=== PATIENT | male | born 1965 | race American Indian/Alaskan Native ===

== ENCOUNTER 2017-03-26 20:25 | Emergency (ER) | payer OTHER ==
[2017-03-26] MEDS ORDERED: TYLENOL ONE (20:39)
[2017-03-26] MEDS ORDERED: TYLENOL PO ONE (20:58)
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
[2017-03-27] MEDS ORDERED: MOTRIN PO ONE (00:08)
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
[2017-03-27 04:29] VITALS: BP 126/77
== END 2017-03-27 02:09 | disposition home or self-care (01) ==
LOC: ED 20:25
DX: S46.912A Strain of unspecified muscle, fascia and tendon at shoulder and upper arm level, left arm, initial encounter (principal); S76.911A Strain of unspecified muscles, fascia and tendons at thigh level, right thigh, initial encounter; S13.4XXA Sprain of ligaments of cervical spine, initial encounter; E11.9 Type 2 diabetes mellitus without complications; V89.2XXA Person injured in unspecified motor-vehicle accident, traffic, initial encounter; Y93.89 Activity, other specified; Y92.89 Other specified places as the place of occurrence of the external cause; Y99.8 Other external cause status
CPT/HCPCS: 72125; 99284